=== PATIENT | male | born 1985 | race Caucasian/White ===

== ENCOUNTER 2020-04-23 12:01 | Inpatient (IN) | payer OTHER ==
[2020-04-23] VITALS (7 sets, daily range): BP systolic 94–136; BP diastolic 47–77
[~2020-04-23] VITALS: Ht 182.9 cm; Wt 57.4 kg
[2020-04-23 15:19] LABS: ABSOLUTE NEUTROPHILS 7.6 thou/uL (1.4-8.2); BASOPHILS 0.5 % (0.0-2.0); LYMPHOCYTES 6.9 % (24.0-44.0); MCH 20.9 pg (26.0-34.0); MCHC 31.1 g/dL (28.0-37.0); MCV 67.3 fL (80.0-100.0); MONOCYTES 12.5 % (1.0-8.0); PLATELET COUNT 583 thou/uL (150-400); POLYS 80.1 % (36.0-66.0); RDW 21.8 % (10.5-14.5); WBC 9.5 thou/uL (4.0-11.0)
[2020-04-23 15:22] LABS: HEMATOCRIT 13.5 % (42.0-52.0); HEMOGLOBIN 4.2 gm/dL (14.0-18.0)
[2020-04-23 15:37] LABS: ALBUMIN 4.1 g/dL (3.4-5.0); BUN 50 mg/dL (7-18); CALCIUM 9.1 mg/dL (8.5-10.1); CHLORIDE 76 mmol/L (98-107); CREATININE 2.8 mg/dL (0.7-1.3); GLUCOSE 114 mg/dL (74-106); LIPASE 244 U/L (73-393); SGOT 22 U/L (15-37); SGPT 39 U/L (30-65); SODIUM 130 mmol/L (136-145); TOTAL BILIRUBIN 3.1 mg/dL (0.2-1.0); TOTAL PROTEIN 8.2 g/dL (6.4-8.2)
[2020-04-23 15:44] LABS: POTASSIUM 2.5 mmol/L (3.5-5.1)
[2020-04-23 15:45] LABS: CO2 > 45 mmol/L (21-32)
[2020-04-23 16:00] LABS: ANISOCYTOSIS 1+; HYPOCHROMASIA 3+; MICROCYTES 3+; PLATELET ESTIMATE INCREASED
[2020-04-23 16:16] LABS: MAGNESIUM 2.7 mg/dL (1.8-2.4); SALICYLATE < 2.8 mg/dL (2.8-20.0)
[2020-04-23 16:26] LABS: HCO3 48.7 mmol/L (22.0-26.0); PCO2 51.5 mmHg (35.0-45.0); pH 7.594 (7.360-7.450); sO2 92.1 % (92.0-98.0)
[2020-04-23 16:28] LABS: PO2 54.7 mmHg (80.0-100.0)
[2020-04-23 16:35] LABS: % SATURATION 3 % (20-39); IRON 16 ug/dL (65-175); TIBC 499 ug/dL (250-450)
[2020-04-23 16:52] LABS: INR 1.1; PROTIME 11.3 Seconds (9.3-11.4)
[2020-04-23 17:17] LABS: ABSOLUTE NEUTROPHILS 5.7 thou/uL (1.4-8.2); BASOPHILS 0.3 % (0.0-2.0); LYMPHOCYTES 7.8 % (24.0-44.0); MCH 20.4 pg (26.0-34.0); MCHC 29.6 g/dL (28.0-37.0); MCV 68.7 fL (80.0-100.0); MONOCYTES 12.2 % (1.0-8.0); POLYS 79.7 % (36.0-66.0); RBC 1.83 mil/uL (4.50-6.00); RDW 21.5 % (10.5-14.5); WBC 7.2 thou/uL (4.0-11.0)
[2020-04-23 17:26] LABS: BUN 52 mg/dL (7-18); CALCIUM 8.5 mg/dL (8.5-10.1); CHLORIDE 75 mmol/L (98-107); CREATININE 2.9 mg/dL (0.7-1.3); GLUCOSE 101 mg/dL (74-106); SODIUM 128 mmol/L (136-145)
[2020-04-23 17:28] LABS: CO2 > 45 mmol/L (21-32); HEMOGLOBIN 3.7 gm/dL (14.0-18.0); POTASSIUM 2.3 mmol/L (3.5-5.1)
[2020-04-23 17:29] LABS: HEMATOCRIT 12.6 % (42.0-52.0)
[2020-04-23 18:09] LABS: FOLIC ACID 18.5 ng/mL (8.6-58.9); TSH 2.174 uIU/mL (0.358-3.740)
--- NOTE | 2020-04-23 18:14 | NUR ---
VASCULAR ACCESS CONSULTED FOR EITHER ML OR IJ. AFTER DUSCUSSION AND SEEING PT'S VEINS. PT HAS 2 PIV'S AND NUMEROUS LARGE VEINS IF NEEDED. AT THIS TIME PT DOES NOT WANT OR NEED ML OR IJ. ANTHONY SUMMERS NOTIFIED. PT INFORMED THAT WE ARE HERE IF HE CHANGES HIS MIND.
[2020-04-23 18:15] LABS: ANISOCYTOSIS 2+
[2020-04-23 18:16] LABS: HYPOCHROMASIA 2+; MICROCYTES 2+; PLATELET COUNT 460 thou/uL (150-400); PLATELET ESTIMATE NORMAL
[2020-04-23 23:54] LABS: HEMATOCRIT 19.3 % (42.0-52.0)
[2020-04-24] VITALS (15 sets, daily range): BP systolic 94–110; BP diastolic 53–80
--- NOTE | 2020-04-24 04:22 | NUR ---
RECEIVED REPORT FROM ER NURSE. PT ARRIVED TO ICU ROOM 240 AROUND 2240. ADMISSION HX AND ASSESSMENT COMPLETED CHARTED. PT C/O MILD, INTERMITTENT ABDOMINAL PAIN. HE DENIED ANY SIGNIFICANT NAUSEA. NPO. ORAL SWABS PROVIDED. PROTONIX GTT INFUSING ORDERED. AFTER 2 UNITS RBCS, HGB WAS 6.0. 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 ORDER RECEIVED TO GIVE ANOTHER 1 UNIT RBC. BLOOD INFUSING AT THIS TIME. PT IS TOLERATING WELL. FALL PRECAUTIONS IN PLACE. PROGRESSING SLOWLY TOWARD POC GOALS. WILL CONTINUE TO MONITOR FURTHER.
[2020-04-24 07:06] LABS: WBC 5.2 thou/uL (4.0-11.0)
[2020-04-24 07:08] LABS: MCHC 32.1 g/dL (28.0-37.0); RBC 2.39 mil/uL (4.50-6.00); RDW 25.9 % (10.5-14.5)
[2020-04-24 07:09] LABS: MCV 77.8 fL (80.0-100.0); PLATELET COUNT 276 thou/uL (150-400)
[2020-04-24 07:11] LABS: HEMATOCRIT 18.6 % (42.0-52.0)
[2020-04-24 07:19] LABS: ALBUMIN 2.9 g/dL (3.4-5.0); TOTAL BILIRUBIN 2.8 mg/dL (0.2-1.0); TOTAL PROTEIN 5.8 g/dL (6.4-8.2)
[2020-04-24 07:28] LABS: CREATININE 1.9 mg/dL (0.7-1.3); POTASSIUM 2.2 mmol/L (3.5-5.1)
[2020-04-24 07:56] LABS: ABSOLUTE NEUTROPHILS 4.5 thou/uL (1.4-8.2); ANISOCYTOSIS 1+; PLATELET ESTIMATE NORMAL
[2020-04-24 08:14] LABS: DIRECT BILIRUBIN 0.9 mg/dL (<0.1-0.2)
--- NOTE | 2020-04-24 11:37 | EKG ---
[facility] [place] [address] ELECTROCARDIOGRAM REPORT Name: TRUDY LI Room #: 240-P ADM IN M.R.#: [id number] Admission: 04/23/20 Attend Phys: Sean Rawls MD Discharge: Date of : 87 Report #: [id number] THIS REPORT FOR: cc: FAM - No family physician/PCP FAM - No family physician/PCP Todd Elkins MD ~ THIS REPORT FOR: //name// [facility] ED Test Date: 2020-04-23 Test Time: 15:52:36 Pat Name: TRUDY LI Department: Room: 240 Gender: M Data Reduction Technician: WISAM : 1985 Requested By: Gil Angeles Order Number: [id number] MD: Todd Elkins Measurements Intervals [place] Rate: 89 P: -2 IL: 121 QRS: 92 QRSD: 153 T: 46 QT: 474 QTc: 577 Interpretive Statements Sinus rhythm RBBB and LPFB Baseline wander in lead(s) V1 No previous ECG available for comparison Electronically Signed On 04-24-2020 11:37:12 CDT by Todd Elkins [email or web address] <ELECTRONICALLY SIGNED> By: Todd Elkins MD 04/24/20 1137 1552 1552 Todd Elkins MD /EPI
--- NOTE | 2020-04-24 11:56 | NUR ---
Nurse talked with Dr. Barnett from Infectious Disease services. Physician expressed isolation may be discontinued at this time. This was informed to the nurse caring for this patient.
--- NOTE | 2020-04-24 12:35 | NUR ---
REPORT CALLED TO 3W RN, PT WILL BE IN ISOLATUION ON THE FLOOR. WILL TRANSFER TO ROOM 357.
--- NOTE | 2020-04-24 19:32 | NUR ---
PT TRANSFERED FROM ICU TO357. A&OX4. IV IN FA AND R AC INTACT. ORIENTED PT TO ROOM /CALL LIGHT. 1 UNIT PRBC GIVEN, 40 MEQ OF K= PO GIVEN. TOLERATING CLEARS WILL BE NPO AFTER MN.
--- NOTE | 2020-04-25 04:54 | NUR ---
Patient progressing well towards outcome goals. Tolerating clear liquids, wants to eat food, Patient informed of paln to do EGD pending COVID swab results. Made NPO after 0300. Vital signs and rhythm stable. Hemoglobin up to 8.1. Potassium replaced orally per electrolyte protocol. Recheck results pending this morning.
[2020-04-25 05:46] LABS: HEMATOCRIT 25.4 % (42.0-52.0); MCHC 31.5 g/dL (28.0-37.0); MCV 82.7 fL (80.0-100.0); RBC 3.07 mil/uL (4.50-6.00); RDW 24.1 % (10.5-14.5); WBC 4.6 thou/uL (4.0-11.0)
[2020-04-25 06:12] LABS: CALCIUM 7.2 mg/dL (8.5-10.1); CREATININE 1.1 mg/dL (0.7-1.3); POTASSIUM 3.5 mmol/L (3.5-5.1)
[2020-04-25 07:50] VITALS: BP 127/66
--- NOTE | 2020-04-25 13:06 | NUR ---
PT CARE ASSUMED AT 0700, PT ALERT AND ORIENTED X2, DISORIENTED TO DATE AND TIME. PT DENIES CHEST PAIN, NAUSEA AND VOMITNG. PT IS ON 3L OF O2, NO SIGNS OF DISTRESS NOTED. WOUND CARE COMPLETED. PT REFUSE TURN, EDUCATION REINFORCED. PT DENIES ANY NEED SOPHIE. CALL LIGHT AND TABLE WITHIN REACH. BED AT LOWEST LEVEL WITH ALARM ON.
--- NOTE | 2020-04-25 13:10 | NUR ---
PT CARE ASSUMED 0700, PT ALERT AND ORIENTED X4, DENIES CHEST PAIN, NUASEA AND VOMITTING. PT IS UP AD EDGAR. DENIES ANY BLOODY STOOLS. COMPLAINS OF ABDOMINAL PAIN DUE TO STRESS, DR RADER MADE AWARE. DR. ALONZO ON THE UNIT, GAVE ORDERS TO FOR REGULAR DIET AND NPO AT MIDNIGHT FOR EGD IN THE MORNING. CALL LIGHT AND TABLE WITHIN REACH. BED AT LOWEST LEVEL. WILL CONTINUE TO MONITOR.
[2020-04-25 17:46] VITALS: BP 95/59
[2020-04-25 20:16] VITALS: BP 119/81
[2020-04-26 04:09] VITALS: BP 132/90
--- NOTE | 2020-04-26 04:15 | NUR ---
Patient making progress towards outcome goals, Vital signs and rhythm stable. Nausea x 1 resolved after Zofran. Up adlib without difficulty. IVFluids and protonix infusing. COVID negative. Planned EGD for today, NPO after MN, Patient voiced understanding for procedure. Consent signed by patient, witnessed by this lead technical writer.
--- NOTE | 2020-04-26 04:20 | NUR ---
Patient progressing towads outcome goals. Vital signs and rhythm stable. IVFluids infusing. Incontinent of stools. Patient high fall risks, fall precautions in place, pt still managed to slide self out to side of bed, observed sliding self down to floor. Patient immediately checked when bed alarm went off, was sitting on the edge of bed and verbally warned to stay in bed while staff put on PPE. Patient continued, hampered by IV tubing, slid to the floor. Patient was able to stand up and made steps back to bed. No visible injuries. Nursing supervisory clerk notified,
[2020-04-26 05:33] LABS: URINE BLOOD NEGATIVE (Negative); URINE CLARITY CLEAR; URINE COLOR YELLOW; URINE GLUCOSE-RANDOM* TRACE (Negative); URINE KETONES TRACE (Negative); URINE LEUKOCYTES-REFLEX NEGATIVE (Negative); URINE NITRITE-REFLEX NEGATIVE (Negative); URINE PROTEIN (DIPSTICK) TRACE (Negative); URINE SPECIFIC GRAVITY 1.015 (1.005-1.035); URINE UROBILINOGEN >= 8.0 E.U./dl (0.2-1.0)
[2020-04-26 05:49] LABS: ICTOTEST (BILI CONFIRMATORY) Negative (Negative); URINE BILIRUBIN NEGATIVE (Negative)
[2020-04-26 07:29] VITALS: BP 108/75
--- NOTE | 2020-04-26 11:46 | NUR ---
PT CARE ASSUMED AT 0700, PT ALERT AND ORIENTED X4, ANXIOUS TO GET THE EGD DONE AND D/C SOON. CONSENTS FPR EGD ALREADY SIGNED BY PT PER PREVIOUS NURSE. 1005 TELEMETRY D/C 1100 EDG CALLED AND STATED PT WILL NOT BE ABLE TO GO HOME TODAY DUE TO A LARGE ULCER FOUND. 1140 DR. RADER MADE AWARE, GAVE ORDERS FOR PT TO GO TO A M/S FLOOR POST PROCEDURE. HOUSE SUP NPOTIFIED.
--- NOTE | 2020-04-26 12:39 | NUR ---
REPORT GIVEN TO SAILAJA HOLLIS. PT BELONGINGS PACKED AND SENT DOWN TO ROOM 455
[2020-04-26 15:18] VITALS: BP 122/82
--- NOTE | 2020-04-26 16:43 | NUR ---
PT ARRIVED TO FLOOR FORM RADIOLOGY S/P EGD AT 1430.PER PHYSIATRIST,PT WAS UPSET TO FIND NG IN HIS NARE WHEN WOKE UP AFTER EGD.THIS RN EXPLAINED RATIONALE FOR NG BUT PT STILL UPSET AND WANTED TO DC HOME.DR RADER NOTIFIED AND OKAY TO DC AMA IF REFUSED TO SEE SURGEON.AT 1600, SALINE LOCK DC'D AND PT SIGNED AMA AND LEFT AMBULATORY.
--- NOTE | 2020-04-28 14:07 | PATH ---
[facility] [address] [place] [address] PATHOLOGY RPT PROCEDURE Name: STEPHANMIKEEULOGIO Room #: 457-P [facility] IN M.R.#: [id number] Admission: 04/23/20 Date of : 87 Discharge: 04/26/20 Report #: [id number] Path Case #: [id number] [facility] Accession Number: [id number] . 01 Material submitted: . stomach - RANDOM GASTRIC BIOPSY R/O H. PYLORI . 01 Clinical history: . NAUSEA/VOMITTING ANEMIA, HYPOK, ALESSIA . 02 Diagnosis: Gastric mucosa, random gastric R/O H. pylori, endoscopic biopsy: - Mild chronic active gastritis. - Negative for intestinal metaplasia or atrophy. - Negative for Helicobacter pylori (properly controlled immunohistochemical stain performed). (IUV:srinivas; 04/28/2020) QMS 04/28/2020 1338 Local . 02 Comment: An intensive search for Helicobacter pylori-like organisms is negative. Absence of such organisms does not entirely exclude the possibility and may be due to sampling. Other possible etiologies may include chemical gastritis, autoimmune gastritis, gastritis associated with inflammatory bowel disease. Please correlate with clinical, endoscopic, and microbiological studies if clinically indicated. (IUV:srinivas; 04/28/2020) . 02 Electronically signed: . Dayanara Valdez MD, Pathologist NPI- [id number] . 01 Gross description: . The specimen is received in formalin, labeled "Eulogio Li, random gastric biopsy, R/O H. pylori". Received are five segments of pale husain soft tissue ranging in size from 0.2 to 0.5 cm in maximum dimensions. The specimen is submitted entirely in cassette A1. ([facility]; 04/27/2020) QAC/QA 04/27/2020 1129 Local . 02 Pathologist provided ICD-10: K29.50 . 02 CPT . 220980, [id number] Specimen Comment: A courtesy copy of this report has been sent to [phone] [address] PATHOLOGY RPT PROCEDURE Name: EULOGIO LI Room #: 457-P [facility] IN M.R.#: [id number] Admission: 04/23/20 Date of : 87 Discharge: 04/26/20 Report #: [id number] Path Case #: [id number] Specimen Comment: [id number] Specimen Comment: Report sent to / DR RUDOLPH Performed at: [address], [place], [place] [id number] MD Hussein Adams MD Phone: [phone] Performed at: [address] [id number] MD Dayanara Valdez MD Phone: [phone]
== END 2020-04-26 16:00 | disposition left against medical advice (07) | DRG 378 ==
LOC: ER 12:01 → EROBS 17:02 → ICU 22:43 → 3W 04-24 13:43 → 4W 04-26 13:21
PROVIDERS: Emergency Medicine; Hospitalist; Nurse Practitioner; Physician Assistant; ADMIT Hospitalist; ATTEND Hospitalist
PROC: 30233N1 Transfusion of Nonautologous Red Blood Cells into Peripheral Vein, Percutaneous Approach (ICD-10-PCS; principal; 2020-04-23)
PROC: 0D768ZZ Dilation of Stomach, Via Natural or Artificial Opening Endoscopic (ICD-10-PCS; 2020-04-26)
DX: K25.4 Chronic or unspecified gastric ulcer with hemorrhage (principal); N17.9 Acute kidney failure, unspecified; E87.1 Hypo-osmolality and hyponatremia; K56.609 Unspecified intestinal obstruction, unspecified as to partial versus complete obstruction; D62 Acute posthemorrhagic anemia; Z68.1 Body mass index [BMI] 19.9 or less, adult; E87.6 Hypokalemia; R63.4 Abnormal weight loss; E86.0 Dehydration; E80.6 Other disorders of bilirubin metabolism; D50.9 Iron deficiency anemia, unspecified; F17.210 Nicotine dependence, cigarettes, uncomplicated; Z53.29 Procedure and treatment not carried out because of patient's decision for other reasons; Z87.11 Personal history of peptic ulcer disease; Z79.1 Long term (current) use of non-steroidal anti-inflammatories (NSAID); Z79.899 Other long term (current) drug therapy; Z20.828 Contact with and (suspected) exposure to other viral communicable diseases
CPT/HCPCS: 10078; 10879; 62110; 62900; 70005; 85076